=== PATIENT | female | born 1955 | race Caucasian/White ===

== ENCOUNTER → 2024-11-03 10:20 | Outpatient (REF) | payer BC, SELFPAY | LOC: HWWDC 10:20 | PROVIDERS: ATTENDING PHYSICIAN Family Medicine; REFERRING PHYSICIAN Obstetrics & Gynecology | DX: Z12.31 Encounter for screening mammogram for malignant neoplasm of breast (principal) | CPT/HCPCS: 77063; 77067 ==

== ENCOUNTER → 2024-11-28 09:31 | Outpatient (REF) | payer BC, SELFPAY | LOC: MRI 3T 09:31 | PROVIDERS: ATTENDING PHYSICIAN Physical Medicine & Rehabilitation; FAMILY PHYSICIAN Family Medicine | DX: M54.16 Radiculopathy, lumbar region (principal) | CPT/HCPCS: 72148 ==